=== PATIENT | female | born 1990 | race Two or more races ===

== ENCOUNTER 2022-02-18 22:18 | Inpatient (IN) | payer OTHER ==
[~2022-02-18] VITALS: Ht 165.1 cm; Wt 2.3 kg
[2022-02-19] MEDS ORDERED: PRENATAL TABLE1 EAC3 PO (00:09)
[2022-02-21] MEDS ORDERED: NAPR500T14 PO (08:51)
[2022-02-21] MEDS ORDERED: Tylenol #3 PO (08:51)
== END 2022-02-21 14:50 | disposition home or self-care (01) | DRG 786 ==
LOC: LDR 22:18 → OB/GYN 22:18
PROVIDERS: Obstetrics & Gynecology; ADMIT Student in an Organized Health Care Education/Training Program; ATTEND Student in an Organized Health Care Education/Training Program
PROC: 4A1HXCZ Monitoring of Products of Conception, Cardiac Rate, External Approach (ICD-10-PCS; 2022-02-18)
PROC: 10D00Z1 Extraction of Products of Conception, Low, Open Approach (ICD-10-PCS; principal; 2022-02-19 07:00)
DX: O42.013 Preterm premature rupture of membranes, onset of labor within 24 hours of rupture, third trimester (principal); O60.14X0 Preterm labor third trimester with preterm delivery third trimester, not applicable or unspecified; Z3A.35 35 weeks gestation of pregnancy; Z37.0 Single live birth; Z20.822 Contact with and (suspected) exposure to COVID-19